=== PATIENT | male | born 1975 | race American Indian/Alaskan Native ===

== ENCOUNTER 2017-07-27 10:57 | Emergency (ER) | payer OTHER ==
[2017-07-27 11:06] VITALS: BP 132/76
[2017-07-27 11:59] LABS: Hematocrit 38.4 % (35.5-45.6); Hemoglobin 12.4 gm/dl (11.8-15.2); Mean Corpuscular HGB Conc 32 % (32-34); Mean Corpuscular Hemoglobin 26 pg (28-32); Mean Corpuscular Volume 81 fl (84-94); Platelet Count 238 K/mm3 (140-440); Red Blood Count 4.75 M/mm3 (3.65-5.03); Red Cell Distribution Width 14.6 % (13.2-15.2)
[2017-07-27 12:14] LABS: Calcium 8.5 mg/dL (8.4-10.2)
[2017-07-27] MEDS ORDERED: KEPPRA 1,000 MG/NS 0.75% 100ML 1,000 MG/100 ML BAG IV ONE (12:29)
[2017-07-27] MEDS ORDERED: KIONEX PO ONE (12:41)
--- NOTE | 2017-07-27 12:41 | Emergency Department Report ---
HPI - General Chief Complaint: Seizure Time Seen by Provider: 07/27/17 12:22 - HPI HPI: Room 7 The patient is a 41-year-old male presenting with a chief complaint of aura. The patient states he has a history of seizure disorder and takes Keppra. The patient states he took his last Keppra yesterday and today began feeling "loopy. " The patient describes this "loopy" feeling as the aura he has before he has seizures. Patient denies other complaints Location: [See above] Duration: [See above] Quality: "Loopy" Severity: Moderate Modifying factors: [see above] Context: [see above] Mode of transportation: Unknown ED Past Medical Hx - Past Medical History Hx Hypertension: Yes Hx Renal Disease: Yes (chronic renal insufficiency) Hx Seizures: Yes Additional medical history: gout - Surgical History Past Surgical History?: No - Family History Family history: no significant - Social History Smoking Status: Never Smoker Substance Use Type: Marijuana - Medications Home Medications: Home Medications Medication Instructions Recorded Confirmed Last Taken Type levETIRAcetam [Keppra TAB] 500 mg PO BID #90 tablet 07/27/17 Unknown Rx ED Review of Systems ROS: Stated complaint: POSS SIEZURE Other details as noted in HPI Neurological: other (aura) Physical Exam - Physical Exam Vital Signs: Vital Signs 07/27/17 11:01 Temperature 98.7 F Pulse Rate 83 Respiratory 16 Rate Blood Pressure 132/76 O2 Sat by Pulse 99 Oximetry Physical Exam: GENERAL: The patient is well-developed well-nourished male sitting on stretcher not appearing to be in acute distress. [] HEENT: Normocephalic. Atraumatic. Extraocular motions are intact. Patient has moist mucous membranes. NECK: Supple. No meningitic signs are noted. Trachea midline CHEST/LUNGS: Clear to auscultation. There is no respiratory distress noted. HEART/CARDIOVASCULAR: Regular. There is no tachycardia. There is no gallop rub or murmur. ABDOMEN: Abdomen is soft, nontender. Patient has normal bowel sounds. There is no abdominal distention. SKIN: There is no rash. There is no edema. There is no diaphoresis. NEURO: The patient is awake, alert, and oriented. The patient is cooperative. The patient has no focal neurologic deficits. The patient has normal speech. Cranial nerves II through XII grossly intact, no drift. Normal sensation throughout MUSCULOSKELETAL: There is no evidence of acute injury. ED Course Vital Signs 07/27/17 11:01 Temperature 98.7 F Pulse Rate 83 Respiratory 16 Rate Blood Pressure 132/76 O2 Sat by Pulse 99 Oximetry ED Medical Decision Making - Lab Data Result diagrams: 07/27/17 11:45 07/27/17 11:45 Laboratory Tests 07/27/17 07/27/17 07/27/17 11:14 11:45 11:45 WBC 5.4 RBC 4.75 Hgb 12.4 Hct 38.4 MCV 81 L MCH 26 L MCHC 32 RDW 14.6 Plt Count 238 Sodium 139 Potassium 5.1 H Chloride 107.5 H Carbon Dioxide 20 L Anion Gap 17 BUN 51 H Creatinine 3.3 H Estimated GFR 25 BUN/Creatinine Ratio 15 Glucose 100 POC Glucose 82 Calcium 8.5 - Medical Decision Making Patient's previous charts, looked up under . Review of the patient's records reveals he had a creatinine of 3.2 on 06/25/2017 - Differential Diagnosis epilepsy, chronic renal insufficiency Critical care attestation.: If time is entered above; I have spent that time in minutes in the direct care of this critically ill patient, excluding procedure time. ED Disposition Clinical Impression: Epilepsy, Chronic renal insufficiency, Hyperkalemia Disposition: - TO HOME OR SELFCARE Is pt being admited?: No Does the pt Need Aspirin: No Condition: Stable Instructions: Chronic Kidney Disease (ED), Epilepsy (ED) Additional Instructions: Return to the emergency department immediately should you develop worsening symptoms, fever, inability to tolerate food or liquid or any other concerns. 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 Please follow up with her for further evaluation of his kidney function)
== END 2017-07-27 14:44 | disposition home or self-care (01) ==
LOC: ED 10:57
DX: G40.909 Epilepsy, unspecified, not intractable, without status epilepticus (principal); E87.5 Hyperkalemia; I12.9 Hypertensive chronic kidney disease with stage 1 through stage 4 chronic kidney disease, or unspecified chronic kidney disease; N18.9 Chronic kidney disease, unspecified; F12.10 Cannabis abuse, uncomplicated
CPT/HCPCS: 36415; 80048; 82962; 85027; 96374; 99284; J1953